=== PATIENT | male | born 1985 | race Asian ===

== ENCOUNTER 2024-12-28 08:01 | Outpatient (AMB) | payer OTHER, SELFPAY ==
--- NOTE | 2024-12-28 08:04 | MHC.OFFVIS ---
Intake Visit Reasons: recurrent kidney stones Intake Note: New patient presents today for initial visit for recurrent kidney stones Urology Medication:None Blood Thinner:None Antibiotic Allergies:None Allergies No Known Allergies Allergy (Verified 12/28/24 08:04) HPI Comments Details: Usama is a 39-year-old male here as a new patient evaluation for history of kidney stones. Patient was seen in [facility] ED 09/20/24 CT scan on 09/20 24 resulting in mild hydronephrosis right proximal ureter 3 mm calculus located at the ureterovesical junction. History of Present Illness The patient is a 39-year-old male presenting for evaluation of nephrolithiasis. He has a history of kidney stones, with the most recent episode occurring four months ago, characterized by right-sided pain without hematuria. The patient has experienced prior episodes of nephrolithiasis. During the last episode, the patient visited the emergency room where imaging confirmed a 2-3 mm calculus in the ureter, which was managed with medication to facilitate passage. The patient successfully passed the stone at home and collected it for analysis, although he forgot to bring it to the current visit. Results - CT scan on September 20, 2024: Mild hydronephrosis, 3 mm calculus at ureterovesical junction Plan 1. Nephrolithiasis - Plan to obtain a renal ultrasound to confirm the absence of additional stones. - Recommend a 24-hour urine collection to assess risk factors for stone formation. - Advise increased fluid intake of 48 to 64 ounces daily to prevent stone formation. - Consider dietary modifications to reduce sodium intake. [facility] Medical History Halitosis Dandruff High triglycerides Low back pain, unspecified Nephrolithiasis Review of Systems Const All systems reviewed & are unremarkable except as noted in HPI and below Reports no additional complaints Eyes Reports no additional complaints ENT Reports no additional complaints Card Reports no additional complaints Resp Reports no additional complaints GI Reports no additional complaints Reports as per HPI Musc Reports no additional complaints Skin/Breast Reports system reviewed and no additional complaints, except as documented Neuro Reports no additional complaints Psych Reports no additional complaints Endo Reports no additional complaints Valente/Lymph Reports no additional complaints Aller/Immun Reports no additional complaints Physical Exam Const General: healthy appearing, no acute distress and well developed Orientation/consciousness: patient oriented x3 HEENT Head: Yes normocephalic and Yes atraumatic Eyes Conjunctivae: conjunctivae normal Neck Neck: Yes normal visual inspection Chest Chest palpation & inspection: normal inspection of the chest Resp Effort & Inspection: normal respiratory effort GI Inspection: Yes normal to inspection Neuro General: patient oriented x3 Psych Appearance: grossly normal Affect: normal affect Assessment & Plan Assessment & Plan (1) Nephrolithiasis: Code(s): N20.0 - Calculus of kidney Category: Medical (2) Hydronephrosis, right: Code(s): N13.30 - Unspecified hydronephrosis Category: Medical Plan Nephrolithiasis - Plan to obtain a renal ultrasound to confirm the absence of additional stones. - Recommend a 24-hour urine collection to assess risk factors for stone formation. - Advise increased fluid intake of 48 to 64 ounces daily to prevent stone formation. - Consider dietary modifications to reduce sodium intake. Orders: Orders US renal BI Today N13.30 - Unspecified hydronephrosis, N20.0 - Calculus of kidney Patient Instructions: The patient had an opportunity to ask questions regarding treatment plan. The patient expressed understanding and agreement with the above treatment plan. The patient is aware they should contact our office by phone for worsening of their current condition or the appearance of new symptoms. Compliance is encouraged with any medications and followup testing that is ordered. It is a privilege to be allowed the opportunity to participate in the urologic care of your patient. If you have any questions or concerns regarding treatment for the above conditions please do not hesitate to contact me. The office telephone contact is [phone]. This note is constructed in part using voice recognition software. While every effort has been made to ensure accuracy cotton ball machine tender errors may have been included. Yours sincerely, Ruben Cisse MD Scribe Plan - Not visible on output: Patient was informed and verbally consented to the use of an ambient scribe for clinic note documentation during this visit. Coding Level of Care Code New Pt Level 4 (79833) Diagnoses Nephrolithiasis N20.0 Hydronephrosis, right N13.30
--- OUTSIDE RECORDS SUMMARY | 2024-12-28 08:04 | XMS_ITS | Clinical Summary ---
Author Organization 175 [facility] Address [address] [place] [address] Phone Care Team Providers Care Ripsawyer Name Role Phone Ck Noonan MD Primary Care Provider Allergies No known active allergies Medications No known medications Active Problems Problem Noted Date Diagnosed Date High triglycerides 01/09/2024 Left ear pain 01/09/2024 Vitamin D deficiency 01/09/2024 Social History Tobacco Use Types Packs/Day Years Used Date Smoking Tobacco: Never Smokeless Tobacco: Never Alcohol Use Standard Drinks/Week Comments Not Currently 0 (1 standard drink = 0.6 oz pur e alcohol) Sex and Gender Information Value Date Recorded Sex Assigned at Not on file Legal Sex Male 8:19 PM EST Gender Identity Not on file Sexual Orientation Not on file Obstetrics History Last Filed Vital Signs Vital Sign Reading Time Taken Comments Blood Pressure 142/93 02/20/2024 10:24 AM EST Pulse 75 02/20/2024 10:24 AM EST Temperature 36.6 C (97.8 F) 02/20/2024 10:24 AM EST Respiratory Rate - - Oxygen Saturation - - Inhaled Oxygen Concentration - - Weight 73.5 kg (162 lb) 02/20/2024 10:24 AM EST Height 165.1 cm (5' 5 ) 02/20/2024 10:24 AM EST Body Mass Index 26.96 02/20/2024 10:24 AM EST Plan of Treatment Health Maintenance Due Date Last Done Comments Social Influencers of Health Screening 04/25/2023 Hepatitis B Vaccines (2 of 2 - CpG 2-dose series) 12/05/2023 11/07/2023 Depression Screening 04/01/2024 COVID-19 Vaccine ( season) 2024 09/05/2020, 08/05/2020 Influenza Vaccine (#1) 2024 , 04/28/2020, 01/05/2019, Additional history exists Cholesterol Screening (Lipid Panel) 09/16/2028 09/17/2023, 09/17/2023, 09/13/2022, Additional history exists DTaP,Tdap,and Td Vaccines (2 - Td or Tdap) 04/28/2030 04/28/2020 HIV Screening Completed 04/28/2020, 04/28/2020 Hepatitis C Screening Completed 04/28/2020 , 04/28/2020, 04/28/2020 HIB Vaccines Aged Out No longer eligi ble based on patient's age to complete this topic HPV Vaccines Aged Out No longer eligi ble based on patient's age to complete this topic Hepatitis A Vaccines Aged Out No long er eligible based on patient's age to complete this topic IPV Vaccines Aged Out No longer eligi ble based on patient's age to complete this topic MMR Vaccines Aged Out No longer eligi ble based on patient's age to complete this topic Meningococcal ACWY Vaccine Aged Out N o longer eligible based on patient's age to complete this topic Meningococcal B Vaccine Aged Out No l onger eligible based on patient's age to complete this topic Pneumococcal Vaccine: Pediatrics (0 to 5 Years) and At-Risk Patients (6 to 49 Years) Aged Out No longer eligible based on patient's age to complete this topic RSV Immunization Patients Under 20 months Aged Out No longer eligible based on patient's age to complete this topic Varicella Vaccines Aged Out No longer eligible based on patient's age to complete this topic Procedures Procedure Name Priority Date/Time Associated Diagnosis Comments LIPID PANEL Routine 09/17/2023 HEPATITIS C SCREENING Routine 04/28/2020 HIV SCREENING Routine 04/28/2020 from Last 3 Months or Most Recently Relevant to Health Maintenance Results * Lipid panel (09/17/2023) LDL/HDL Ratio 0 Comment:no interpretation, a bstracted Triglycerides 0 mg/dL Comment:no interpretation, a bstracted Cholesterol 0 mg/dL Comment:no interpretation, a bstracted HDL 0 mg/dL Comment:no interpretation, a bstracted LDL Cholesterol 0 mg/dL Comment:no interpretation, a bstracted Blood Venous blood specimen / Unknown [facility] Provider LAB BLOOD ORDERABLES Sherri l Result * HIV Screening (04/28/2020) HIV Screening ABSTRACTED [facility] Provider HEALTH MAINTENANCE Final Result * Hepatitis C Screening (04/28/2020) Hepatitis C Screening ABSTRACTED [facility] Provider HEALTH MAINTENANCE Final Result from Last 3 Months or Most Recently Relevant to Health Maintenance Insurance [facility] [employer] Care Teams Ripsawyer Relationship Specialty Start Date End Date Ck Noonan MD [address] [place] [address] Dr Delia MA PCP - General 09/14/22
--- OUTSIDE RECORDS SUMMARY | 2024-12-28 08:05 | XMS_ITS | Encounter Summary ---
Author Organization [facility] Address [address] [place] [address] Care Team Providers Care Cash Processing Specialist Name Role Phone Shanelle Oliva PA-C Primary Care Provider [phone] Encounter Details Date Type Department Care Team (Late st Contact Info) Description 07/13/2014 Interim Notes [facility] [address] [place] [address] Anabela Chua NP [address] [place] [address] Social History Tobacco Use Types Packs/Day Years Used Date Smoking Tobacco: Never Alcohol Use Standard Drinks/Week Comments No 0 (1 standard drink = 0.6 oz pur e alcohol) Sex and Gender Information Value Date Recorded Sex Assigned at Male 05/06/2017 12:11 PM PST Legal Sex Male 6:58 AM PDT Gender Identity Male 05/06/2017 12:11 PM PST Sexual Orientation Straight 05/06/2017 12 :11 PM PST documented as of this encounter Plan of Treatment Not on file documented as of this encounter Visit Diagnoses Diagnosis PPD screening test- Primary Screening examination for pulmonary tuberculosis documented in this encounter Care Teams Cash Processing Specialist Relationship Specialty Start Date End Date Shanelle Oliva PA-C [address] [place] [address] PCP - General [facility] [place] 08/03/21 documented as of this encounter
--- OUTSIDE RECORDS SUMMARY | 2024-12-28 08:05 | XMS_ITS | Clinical Summary ---
Author Organization [facility] Address [address] [place] [address] Care Team Providers Care Grooming Assistant Name Role Phone Shanelle Oliva PA-C Primary Care Provider Source Comments PLEASE NOTE, if this patient is a minor, it may be UNLAWFUL to discuss sensitive information that is contained in these records (such as FAMILY PLANNING, MENTAL HEALTH or SUBSTANCE ABUSE) with the minor patient's parent or other person without the patient's specific authorization.[facility] Allergies No known active allergies Medications lidocaine (LIDODERM) 5 % patchIndications:U pper back pain Place 1 Patch onto the skin daily. Apply 1 patch to the affected area for a maximum of 12 hours, followed by removal for 12 hours. 30 Patch 4 Active acetaminophen (TYLENOL) 500 mg tablet Take 1 Tablet by mouth every 6 (six) hours as needed for pain 60 Tablet 1 4 Active ibuprofen 600 mg tablet Take 1 Tablet by mouth 4 (four) times daily as needed for pain 60 Tablet 1 4 Active diclofenac sodium (VOLTAREN) 1 % gelIndications:Upp er back pain APPLY 2-4 G TOPICALLY 2 (TWO) TIMES DAILY 100 g 4 Active fenofibrate micronized (LOFIBRA) 134 mg capsuleIndications :High triglycerides Take 1 Capsule by mouth once daily with breakfast 90 Capsule 1 4 Active ketoconazole (NIZORAL) 2 % shampooIndications :Dandruff Apply 5 to 10 ml to wet hair and massage into scalp/hair. Leave on for 3 to 5 minutes before rinsing. Use twice per week for 2 to 4 weeks. May use once per week after initial treatment to prevent recurrence.. 120 mL 2 Active Active Problems Problem Noted Date Diagnosed Date High triglycerides 09/18/2023 Left ear pain 02/25/2019 Vitamin D deficiency 05/19/2014 Encounters Date Type Department Care Team Description 10/29/2024 Results Follow-Up [address] [address] Shanelle Oliva PA-C 10/28/2024 8:40 AM EDT Office Visit [address] [address] Shanelle Oliva PA-C from Last 3 Months Immunizations Immunization Administration Dates Next Due Flu, Preservative Free 02/10/2021,04/28/2020,09/2018 Hep B,adult,adjuvanted (HEPLISAV) 10/28/2024,10/2023 INFLUENZA, SEASONAL, INJECTABLE 01/05/2013 INFLUENZA, SEASONAL, INJECTA BLE, PRESERVATIVE FREE 04/20/2014 PPD 07/13/2014 TDAP 04/28/2020 Family History Medical History Relation Name Comments Asthma Father 51 Hypertension Mother 36 Relation Name Status Comments Father 51 Mother 36 Social History Tobacco Use Types Packs/Day Years Used Date Smoking Tobacco: Never Passive Smoke Exposure: Never Smokeless Tobacco: Never Tobacco Cessation:Counseling Given: Yes Alcohol Use Standard Drinks/Week Comments No 0 (1 standard drink = 0.6 oz pur e alcohol) Social Connections Answer Date Recorded Connectedness 1 09/17/2023 Financial Resource Strain Answer Date R ecorded Financial Resource Strain 1 2023 Stress Answer Date Recorded Stress 1 09/17/2023 Physical Activity Answer Date Recorded Physical Activity 0 11/23/2018 Food Insecurity Answer Date Recorded Food 1 09/17/2023 Transportation Needs Answer Date Record ed Transportation 1 09/17/2023 Housing Stability Answer Date Recorded Housing 1 09/17/2023 Safety and Environment Answer Date Konrad rded Safety 1 09/17/2023 Utilities Answer Date Recorded Utilities 1 09/17/2023 Employment Answer Date Recorded Employment 0 11/23/2018 Sex and Gender Information Value Date Recorded Sex Assigned at Male 05/06/2017 12:11 PM PST Legal Sex Male 6:58 AM PDT Gender Identity Male 05/06/2017 12:11 PM PST Sexual Orientation Straight 05/06/2017 12 :11 PM PST Last Filed Vital Signs Vital Sign Reading Time Taken Comments Blood Pressure 120/80 10/28/2024 8:54 AM EDT Pulse 76 10/28/2024 8:54 AM EDT Temperature 36.9 C (98.4 F) 10/28/2024 8:54 AM EDT Respiratory Rate 16 10/28/2024 8:54 AM EDT Oxygen Saturation 98% 10/28/2024 8:54 AM EDT Inhaled Oxygen Concentration - - Weight 75.8 kg (167 lb) 10/28/2024 8:54 AM EDT Height 165.1 cm (5' 5 ) 10/28/2024 8:54 AM EDT Body Mass Index 27.79 10/28/2024 8:54 AM EDT Plan of Treatment Health Maintenance Due Date Last Done Comments Imm-HPV (1 - 3-dose SCDM series) 10/21/2011 Anxiety Screening 09/16/2024 09/17/2023 [id number] ( season) 2024 021, 08/05/2020 Imm-Influenza (#1) 2024 02/10/2021, 0 04/28/2020, 01/05/2019, Additional history exists Annual Wellness (Adult): Ind icated (All Coverage) 10/28/2025 10/28/2024, 10/28/2024, 09/17/2023, Additional history exists Hypertension Screening (#1) 10/28/2025 Tobacco Screening 10/28/2025 10/28/2024, 09/17/2023 Diabetes Screening 09/16/2026 09/17/2023, 0 09/13/2022, 09/26/2020, Additional history exists Lipid Screening 10/28/2029 10/28/2024, 08/30, 09/17/2023, Additional history exists Imm-DTaP/Tdap/Td (2 - Td or Tdap) 04/28/2030 021 HIV Screening Completed 04/28/2020, 04/28/2020 Hepatitis C Screening Completed 04/28/2020 Alcohol and Drug Screen Completed 10/29/19, 09/17/2023, 09/13/2022, Additional history exists Depression Annual Screen Completed 10/28/2024, 08/30 Imm-Hepatitis B Completed 10/28/2024, 11/07/2023 Procedures Procedure Name Priority Date/Time Associated Diagnosis Comments LIPID PANEL Routine 10/28/2024 9:48 AM EDT High triglycerides COMPREHENSIVE METABOLIC PANEL Routine 09/17/2023 2:23 PM EDT Encounter for annual physical exam ANTIBODY HIV-1&HIV-2 SINGLE RESULT Routine 04/28/2020 11:10 AM EST Screening for viral disease HEPATITIS C ANTIBODY Routine 04/28/2020 11:10 AM EST Screening for viral disease from Last 3 Months or Most Recently Relevant to Health Maintenance Results * (ABNORMAL) LIPID PANEL Routine (10/28/2024 9:48 AM EDT) [facility] CHOLESTEROL, TOTAL 235(H) <200 mg/dL 10/29/2024 7:48 AM EDT [facility] HDL CHOLESTEROL 43 > OR = 40 mg/dL 10/29/2024 7:48 AM EDT [facility] TRIGLYCERIDES 148 <150 mg/dL 10/29/2024 7:48 AM EDT [facility] LDL-CHOLESTEROL 163(H) mg/dL (calc) 10/29/2024 7:48 AM EDT [facility] CHOL/HDLC RATIO 5.5(H) <5.0 (calc) 10/29/2024 7:48 AM EDT [facility] NON-HDL CHOLESTEROL 192(H) <130 mg/dL (calc) 10/29/2024 7:48 AM EDT [facility] Blood Blood / Unknown 10/28/2024 9 :48 AM EDT 10/29/2024 5:27 AM EDT Narrative [facility] - 10/29/2024 7:50 AM EDT FASTING:YES Reference range: <100 . Desirable range <100 mg/dL for primary prevention; <70 mg/dL for patients with CHD or diabetic patients with > or = 2 CHD risk factors. . LDL-C is now calculated using the Arlen calculation, which is a validated novel method providing better accuracy than the Friedewald equation in the estimation of LDL-C. Bari ROSE et al. TAYLOR. 2013;310(19): 3239-5148 (http://education.[employer].VoiceBunny/faq/LMK973) For patients with diabetes plus 1 major ASCVD risk factor, treating to a non-HDL-C goal of <100 mg/dL (LDL-C of <70 mg/dL) is considered a therapeutic option. us Shanelle Oliva PA-C LAB - BLOOD DRAW Final Resul t [facility] [address] [address], [facility] [address] [address] * COMPREHENSIVE METABOLIC PANEL (09/17/2023 2:23 PM EDT) [facility] GLUCOSE 88 65 - 99 mg/dL [facility] Comment: Fasting reference interval UREA NITROGEN (BUN) 14 7 - 25 mg/dL [facility] CREATININE (blood) 0.90 0.60 - 1.26 mg/dL [facility] EGFR 112 > OR = 60 mL/min/1. 73m2 [facility] BUN/CREATININE RATIO SEE NOTE: [facility] Comment: Not Reported: BUN and Creatinine are within reference range. SODIUM 138 135 - 146 mmol/L [facility] POTASSIUM 4.6 3.5 - 5.3 mmol/L [place] [facility] CHLORIDE 101 98 - 110 mmol/L [facility] CARBON DIOXIDE 28 20 - 32 mmol/L [place] CALCIUM 9.6 8.6 - 10.3 mg/dL [place] PROTEIN, TOTAL 7.1 6.1 - 8.1 g/dL [facility] ALBUMIN 4.4 3.6 - 5.1 g/dL [facility] GLOBULIN 2.7 1.9 - 3.7 g/dL (calc) [place] ALBUMIN/GLOBULI N RATIO 1.6 1.0 - 2.5 (calc) [facility] BILIRUBIN, TOTAL 1.2 0.2 - 1.2 mg/dL [facility] ALKALINE PHOSPHATASE 49 36 - 130 U/L [facility] AST 27 10 - 40 U/L [facility] ALT 36 9 - 46 U/L [facility] Blood Blood / Unknown 09/17/2023 2 :23 PM EDT 09/17/2023 2:24 PM EDT Shanelle Oliva PA-C LAB - BLOOD DRAW Edited Resu lt - Final Performing Organization Address City/[facility]/ZIP Co de Phone Number [facility] [address] [address], [facility] [address] [address] * HEPATITIS C ANTIBODY (04/28/2020 11:10 AM EST) HEPATITIS C VIRUS SCREEN NEGATIVE NEGATIVE [facility] Blood Blood / Unknown 04/28/2020 1 1:10 AM EST 04/28/2020 11:23 AM EST Narrative [facility] - 04/28/2020 7:16 PM EST [facility] [employer], [place] [id number] Cnc Specialist - Tarah Shetty MD PT ID [id number] ORD# [id number] Aretha BERMUDEZ LAB - BLOOD DRAW Final Result Performing Organization Address City/[facility] [place] [address], * HIV-1 & HIV-2 ANTIBODIES (04/28/2020 11:10 AM EST) Pathologist [facility] HIV 1 AND 2 ANTIBODY SCREEN NEGATIVE NEGATIVE [facility] Comment: This assay is a 4th generation assay allowing for earlier detection of HIV infection by detecting the presence of the HIV-1 p24 antigen as well as the traditional antibodies to HIV type 1 (including group O) and type 2. Use of a 4th generation assay is the current CDC recommendation for HIV screening. Blood Blood / Unknown 04/28/2020 1 1:10 AM EST 04/28/2020 11:23 AM EST Narrative [email or web address] - 04/29/2020 1:40 PM EST [employer], a member of [address] [address] Cnc Specialist - Tarah Shetty MD PT ID [id number] ORD# [id number] Aretha Astorga [facility] LAB - BLOOD DRAW Final Result [email or web address] [address], from Last 3 Months or Most Recently Relevant to Health Maintenance Insurance [employer] Member Subscriber Plan / Payer (Ef fective 2019-Present) Name:Usama Dale Relation to Subscriber:Self Name:Usama Dale Payer ID:[id number] Type:Indemnity Address: [facility] [address] [place] [address] Care Teams Grooming Assistant Relationship Specialty Start Date End Date Shanelle Oliva PA-C [address] [place] [address] PCP - General FAMILY MEDICINETWYLA 08/03/21
== END 2024-12-28 08:52 | disposition home or self-care (01) ==
LOC: HO.HUSH 08:02
PROVIDERS: PCP Physician Assistant; Visit Provider Urology
DX: N20.0 Calculus of kidney (principal); N13.30 Unspecified hydronephrosis
CPT/HCPCS: 99204

== ENCOUNTER → 2024-12-28 08:01 | Outpatient (BNVA) | payer OTHER, SELFPAY | PROVIDERS: PCP Physician Assistant; Visit Provider Urology | DX: N20.0 Calculus of kidney (principal); N18.30 Chronic kidney disease, stage 3 unspecified | CPT/HCPCS: 81003; 99202 ==

== ENCOUNTER 2025-03-15 12:42 | Outpatient (REF) | payer OTHER, SELFPAY ==
--- NOTE | ~2025-03-15 | US_ITS ---
EXAMINATION: US RETROPERITONEAL LIMITED (RENAL ONLY) CLINICAL INFORMATION: Unspecified hydronephrosis. COMPARISON: None available. TECHNIQUE: Real-time imaging of the kidneys. FINDINGS: RIGHT KIDNEY: 10.6 x 5.1 x 5.0 cm (SAG x AP x TRV). The kidney is normal in size, contour, and echogenicity. Renal cortical thickness is normal. No calculi or focal parenchymal lesions. No hydronephrosis. LEFT KIDNEY: 10.2 x 5.0 x 4.8 cm (SAG x AP x TRV). The kidney is normal in size, contour, and echogenicity. Renal cortical thickness is normal. No calculi or focal parenchymal lesions. No hydronephrosis. US/US renal BI IMPRESSION: Unremarkable renal ultrasound. Electronically signed by: Silvestre Watt MD 03/15/2025 02:30 PM KARI
== END 2025-03-15 12:43 | disposition home or self-care (01) ==
LOC: HO.US 12:42
PROVIDERS: Visit Provider Urology
DX: N13.2 Hydronephrosis with renal and ureteral calculous obstruction (principal)
CPT/HCPCS: 76775

== ENCOUNTER → 2025-03-15 12:44 | Outpatient (BNV) | payer OTHER, SELFPAY | PROVIDERS: Visit Provider Radiology Diagnostic Radiology | DX: N13.30 Unspecified hydronephrosis (principal) | CPT/HCPCS: 76775 ==